=== PATIENT | female | born 1955 | race Caucasian/White ===

== ENCOUNTER 2018-03-12 22:40 | Inpatient (IN) | payer MEDICARE, MEDICAID ==
[~2018-03-12 22:40] MED LIST: ADV250 IH; BENZ1TAB70 PO; CARB200T6 PO; DOCU250C16 PO; LEVO150T11 PO; LISI-661 PO; RISP2 PO; SIMV-260 PO; VALP250S PO
[2018-03-13 01:50] VITALS: BP 122/88
[2018-03-13] MEDS ORDERED: PNEUMOCOCCAL VACCINE POLYVALENT 0.5 ML VIAL [PPSV23] IM ONE (03:45)
[2018-03-13 08:20] VITALS: BP 117/71
[2018-03-13] MEDS ORDERED: MAG HYDROX/AL HYDROX/SIMETH ES 30 ML SUSPENSION UDCUP PO PRN (13:00)
[2018-03-13] MEDS ORDERED: PROMETHAZINE HCL 25 MG TABLET PO PRN (13:00)
[2018-03-13] MEDS ORDERED: LOPERAMIDE HCL 2 MG CAPSULE PO PRN (13:00)
[2018-03-13] MEDS ORDERED: ACETAMINOPHEN 325 MG TABLET PO PRN (13:00)
[2018-03-13] MEDS ORDERED: GuaiFENesin/D-METHORPHAN [SUGAR-FREE] 200-20MG/10 ML SYRUP UDCUP PO PRN (13:00)
[2018-03-13] MEDS ORDERED: TUBERCULIN, PURIFIED PROTEIN DERIVATIVE 5 TU/0.1 ML SYG ID ONE (13:00)
[2018-03-13] MEDS ORDERED: HydrOXYzine PAMOATE 50 MG CAPSULE PO PRN (13:00)
[2018-03-13 16:14] VITALS: BP 114/77
[2018-03-13] MEDS: THIAMINE HCL 100 MG TABLET PO SCH (16:41)
[2018-03-13] MEDS: OLANZapine 5 MG RAPDIS TABLET PO SCH ×2 (21:00→21:35)
[2018-03-13] MEDS: DIVALPROEX SODIUM 500 MG ER TABLET PO SCH ×2 (21:00→21:34)
[2018-03-14 00:45] VITALS: BP 140/81
[2018-03-14] MEDS: LORazepam 2 MG TABLET PO PRN ×3 (03:23→16:17)
[2018-03-14] MEDS: HALOPERIDOL 5 MG TABLET PO PRN ×3 (03:24→16:17)
[2018-03-14] MEDS: OLANZapine 5 MG RAPDIS TABLET PO PRN (07:10)
[2018-03-14 08:42] LABS: BASOPHILS % (AUTO) 1.1 % (0.0-2.0); EOSINOPHILS % (AUTO) 0.9 % (1.0-6.0); HEMATOCRIT 44.8 % (36-46); HEMOGLOBIN 15.5 g/dL (12.0-16.0); LYMPHOCYTES # (AUTO) 2.4 K/uL (1.0-4.8); LYMPHOCYTES % (AUTO) 32.1 % (22.0-44.0); MEAN CORPUSCULAR HEMOGLOBIN 30.5 pg (26.0-34.0); MEAN CORPUSCULAR HGB CONC 34.6 G/dL (31.0-37.0); MEAN CORPUSCULAR VOLUME 88 fL (80-100); MONOCYTES # (AUTO) 0.6 K/uL (0.1-1.0); MONOCYTES % (AUTO) 7.7 % (2.0-9.0); NEUTROPHILS # (AUTO) 4.4 K/uL (1.8-7.7); NEUTROPHILS % (AUTO) 58.2 % (40.0-70.0); PLATELET COUNT (AUTO) 241 K/uL (150-450); RED BLOOD CELL COUNT(AUTO) 5.09 MIL/uL (4.00-5.20); RED CELL DISTRIBUTION WIDTH 13.6 % (11.5-14.5)
[2018-03-14] MEDS: THIAMINE HCL 100 MG TABLET PO SCH ×2 (08:57→16:19)
[2018-03-14] MEDS: MULTIVITAMINS WITH MINERALS, THERAPEUTIC TABLET PO SCH (08:57)
[2018-03-14] MEDS: FOLIC ACID 1 MG TABLET PO SCH (08:57)
[2018-03-14 09:00] LABS: HEMOGLOBIN A1C 5.3 % (4.5-6.2)
[2018-03-14 09:38] LABS: ALANINE AMINOTRANSFERASE 45 U/L (12-78); ALBUMIN 3.9 g/dL (3.4-5.0); ALKALINE PHOSPHATASE 79 U/L (46-116); ANION GAP 14 mmol/L (8-16); ASPARTATE AMINOTRANSFERASE 56 U/L (15-37); BILIRUBIN,TOTAL 1.1 mg/dL (0.1-1.0); CALCIUM, TOTAL 9.7 mg/dL (8.8-10.5); CARBON DIOXIDE 24 mmol/L (22-29); CHLORIDE 103 mmol/L (98-107); CHOL/HDL RATIO 3.9 (3.9-5.7); CHOLESTEROL 206 mg/dL (131-200); CREATININE 0.45 mg/dL (0.60-1.30); FREE T4 (FREE THYROXINE) 1.48 ng/dL (0.76-1.46); GLOMERULAR FILTR. RATE CALC > 60 mL/min (>60); GLUCOSE,RANDOM 135 mg/dL (70-110); HDL CHOLESTEROL 53 mg/dL (40-60); LDL CHOL (CALC.) 131 mg/dL (0-130); POTASSIUM 3.7 mmol/L (3.5-5.1); SODIUM SERUM 141 mmol/L (136-145); THYROID STIMULATING HORMONE 1.01 uIU/mL (0.36-3.74); TOTAL PROTEIN, SERUM 7.3 g/dL (6.4-8.2); TRIGLYCERIDES 109 mg/dL (15-150); UREA NITROGEN, BLOOD 11 mg/dL (7-18)
[2018-03-14] MEDS: NICOTINE 21 MG/24 HOUR PATCH TD SCH (11:50)
[2018-03-14 13:31] VITALS: BP 120/72
[2018-03-14 16:00] VITALS: BP 121/85
[2018-03-14] MEDS: OLANZapine 10 MG RAPDIS TABLET PO SCH (20:15)
[2018-03-14] MEDS: DIVALPROEX SODIUM 500 MG ER TABLET PO SCH (20:52)
[2018-03-15 06:43] VITALS: BP 138/79
[2018-03-15 08:42] VITALS: BP 128/98
[2018-03-15] MEDS: FOLIC ACID 1 MG TABLET PO SCH (09:00)
[2018-03-15] MEDS: THIAMINE HCL 100 MG TABLET PO SCH ×2 (09:08→17:07)
[2018-03-15] MEDS: NICOTINE 21 MG/24 HOUR PATCH TD SCH (09:08)
[2018-03-15] MEDS: MULTIVITAMINS WITH MINERALS, THERAPEUTIC TABLET PO SCH (09:09)
[2018-03-15 17:30] VITALS: BP 130/76
[2018-03-15] MEDS: OLANZapine 10 MG RAPDIS TABLET PO SCH (20:46)
[2018-03-15] MEDS: DIVALPROEX SODIUM 500 MG ER TABLET PO SCH (20:47)
[2018-03-16] MEDS: LORazepam 2 MG TABLET PO PRN ×2 (01:04→16:14)
[2018-03-16 03:51] VITALS: BP 128/94
[2018-03-16 08:06] VITALS: BP 127/87
[2018-03-16] MEDS: THIAMINE HCL 100 MG TABLET PO SCH ×2 (08:08→16:16)
[2018-03-16] MEDS: MULTIVITAMINS WITH MINERALS, THERAPEUTIC TABLET PO SCH (08:08)
[2018-03-16] MEDS: NICOTINE 21 MG/24 HOUR PATCH TD SCH (08:09)
[2018-03-16] MEDS: FOLIC ACID 1 MG TABLET PO SCH (08:09)
[2018-03-16 17:45] VITALS: BP 123/89
[2018-03-16] MEDS: OLANZapine 10 MG RAPDIS TABLET PO SCH (21:09)
[2018-03-17 04:36] VITALS: BP 118/83
[2018-03-17 08:11] VITALS: BP 129/91
[2018-03-17] MEDS: LORazepam 2 MG TABLET PO PRN ×2 (08:33→17:04)
[2018-03-17] MEDS: THIAMINE HCL 100 MG TABLET PO SCH ×2 (08:33→17:00)
[2018-03-17] MEDS: FOLIC ACID 1 MG TABLET PO SCH (08:33)
[2018-03-17] MEDS: MULTIVITAMINS WITH MINERALS, THERAPEUTIC TABLET PO SCH (08:33)
[2018-03-17] MEDS: NICOTINE 21 MG/24 HOUR PATCH TD SCH (08:39)
[2018-03-17] MEDS: OLANZapine 10 MG RAPDIS TABLET PO SCH (20:29)
[2018-03-18 06:07] VITALS: BP 136/82
[2018-03-18] MEDS: THIAMINE HCL 100 MG TABLET PO SCH ×2 (08:11→16:48)
[2018-03-18] MEDS: FOLIC ACID 1 MG TABLET PO SCH (08:11)
[2018-03-18] MEDS: MULTIVITAMINS WITH MINERALS, THERAPEUTIC TABLET PO SCH (08:11)
[2018-03-18] MEDS: OLANZapine 5 MG RAPDIS TABLET PO PRN ×2 (08:12→16:48)
[2018-03-18] MEDS: NICOTINE 21 MG/24 HOUR PATCH TD SCH (08:12)
[2018-03-18] MEDS: LORazepam 2 MG TABLET PO PRN ×2 (08:12→16:48)
[2018-03-18 10:02] VITALS: BP 124/74
[2018-03-18] MEDS: OLANZapine 10 MG RAPDIS TABLET PO SCH (20:48)
[2018-03-19 08:06] VITALS: BP 134/76
[2018-03-19] MEDS: THIAMINE HCL 100 MG TABLET PO SCH ×2 (08:16→16:57)
[2018-03-19] MEDS: NICOTINE 21 MG/24 HOUR PATCH TD SCH (08:17)
[2018-03-19] MEDS: LORazepam 2 MG TABLET PO PRN ×2 (08:17→16:58)
[2018-03-19] MEDS: MULTIVITAMINS WITH MINERALS, THERAPEUTIC TABLET PO SCH (08:17)
[2018-03-19] MEDS: FOLIC ACID 1 MG TABLET PO SCH (08:17)
[2018-03-19 16:33] VITALS: BP 139/89
[2018-03-19] MEDS: OLANZapine 5 MG RAPDIS TABLET PO PRN (16:58)
[2018-03-19] MEDS: MELATONIN 3 MG TABLET PO SCH (20:45)
[2018-03-19] MEDS: ZOLPIDEM TARTRATE 10 MG TABLET PO PRN (20:45)
[2018-03-20 06:05] VITALS: BP 145/80
[2018-03-20 08:12] LABS: EOSINOPHILS % (AUTO) 1.1 % (1.0-6.0); HEMATOCRIT 43.2 % (36-46); HEMOGLOBIN 14.7 g/dL (12.0-16.0); LYMPHOCYTES # (AUTO) 1.9 K/uL (1.0-4.8); LYMPHOCYTES % (AUTO) 34.6 % (22.0-44.0); MEAN CORPUSCULAR HEMOGLOBIN 30.4 pg (26.0-34.0); MEAN CORPUSCULAR HGB CONC 33.9 G/dL (31.0-37.0); MEAN CORPUSCULAR VOLUME 90 fL (80-100); MONOCYTES # (AUTO) 0.6 K/uL (0.1-1.0); MONOCYTES % (AUTO) 10.3 % (2.0-9.0); PLATELET COUNT (AUTO) 197 K/uL (150-450); RED BLOOD CELL COUNT(AUTO) 4.82 MIL/uL (4.00-5.20)
[2018-03-20] MEDS: THIAMINE HCL 100 MG TABLET PO SCH ×2 (08:17→16:34)
[2018-03-20] MEDS: MULTIVITAMINS WITH MINERALS, THERAPEUTIC TABLET PO SCH (08:17)
[2018-03-20] MEDS: FOLIC ACID 1 MG TABLET PO SCH (08:17)
[2018-03-20] MEDS: NICOTINE 21 MG/24 HOUR PATCH TD SCH (08:18)
[2018-03-20] MEDS: LORazepam 2 MG TABLET PO PRN ×2 (08:19→16:34)
[2018-03-20] MEDS ORDERED: CloZAPine 25 MG TABLET PO SCH (09:00)
[2018-03-20] MEDS: OLANZapine 5 MG RAPDIS TABLET PO PRN (16:34)
[2018-03-20 17:51] VITALS: BP 143/93
[2018-03-20] MEDS: MELATONIN 3 MG TABLET PO SCH (20:40)
[2018-03-20] MEDS: ZOLPIDEM TARTRATE 10 MG TABLET PO PRN (20:40)
[2018-03-21] VITALS: BP 140/92
[2018-03-21] MEDS: THIAMINE HCL 100 MG TABLET PO SCH ×2 (08:23→17:31)
[2018-03-21] MEDS: MULTIVITAMINS WITH MINERALS, THERAPEUTIC TABLET PO SCH (08:23)
[2018-03-21] MEDS: FOLIC ACID 1 MG TABLET PO SCH (08:23)
[2018-03-21] MEDS: NICOTINE 21 MG/24 HOUR PATCH TD SCH (08:27)
[2018-03-21] MEDS: LORazepam 2 MG TABLET PO PRN (08:33)
[2018-03-21] MEDS ORDERED: CloZAPine 25 MG TABLET PO SCH ×2 (09:00→21:00)
[2018-03-21 09:24] VITALS: BP 148/97
[2018-03-21 16:00] VITALS: BP 137/72
[2018-03-21] MEDS: MELATONIN 3 MG TABLET PO SCH (21:02)
[2018-03-22 01:15] VITALS: BP 138/88
[2018-03-22] MEDS: ZOLPIDEM TARTRATE 10 MG TABLET PO PRN (01:18)
[2018-03-22 08:35] VITALS: BP 136/98
[2018-03-22] MEDS ORDERED: CloZAPine 25 MG TABLET PO SCH ×2 (09:00→21:00)
[2018-03-22] MEDS: NICOTINE 21 MG/24 HOUR PATCH TD SCH (09:56)
[2018-03-22] MEDS: THIAMINE HCL 100 MG TABLET PO SCH ×2 (09:57→16:38)
[2018-03-22] MEDS: FOLIC ACID 1 MG TABLET PO SCH (09:57)
[2018-03-22] MEDS: MULTIVITAMINS WITH MINERALS, THERAPEUTIC TABLET PO SCH (09:57)
[2018-03-22] MEDS ORDERED: DIAZEPAM 5 MG TABLET PO PRN (15:45)
[2018-03-22 16:32] VITALS: BP 118/86
[2018-03-22] MEDS: MELATONIN 3 MG TABLET PO SCH (21:07)
[2018-03-23 07:36] VITALS: BP 116/88
[2018-03-23 08:00] VITALS: BP 165/109
[2018-03-23] MEDS: FOLIC ACID 1 MG TABLET PO SCH (08:13)
[2018-03-23] MEDS: CloZAPine 25 MG TABLET PO SCH ×2 (08:13→21:04)
[2018-03-23] MEDS: THIAMINE HCL 100 MG TABLET PO SCH (08:13)
[2018-03-23] MEDS: MULTIVITAMINS WITH MINERALS, THERAPEUTIC TABLET PO SCH (08:13)
[2018-03-23] MEDS: NICOTINE 21 MG/24 HOUR PATCH TD SCH (08:13)
[2018-03-23] MEDS ORDERED: DiphenhydrAMINE HCL 25 MG CAPSULE PO ONE (16:15)
[2018-03-23] MEDS: LORazepam 2 MG TABLET PO PRN (16:59)
[2018-03-23] MEDS: OLANZapine 5 MG RAPDIS TABLET PO PRN (17:00)
[2018-03-23] MEDS: MELATONIN 3 MG TABLET PO SCH (21:05)
[2018-03-24] MEDS: NICOTINE 21 MG/24 HOUR PATCH TD SCH (09:58)
[2018-03-24] MEDS: CloZAPine 25 MG TABLET PO SCH ×2 (09:58→20:34)
[2018-03-24] MEDS: MULTIVITAMINS WITH MINERALS, THERAPEUTIC TABLET PO SCH (09:58)
[2018-03-24] MEDS: DiphenhydrAMINE HCL 25 MG CAPSULE PO SCH (10:00)
[2018-03-24 11:10] VITALS: BP 132/93
[2018-03-24 16:00] VITALS: BP 146/90
[2018-03-24] MEDS: MELATONIN 3 MG TABLET PO SCH (20:34)
[2018-03-25 01:48] VITALS: BP 144/88
[2018-03-25] MEDS ORDERED: CloZAPine 25 MG TABLET PO SCH (09:00)
[2018-03-25] MEDS: DiphenhydrAMINE HCL 25 MG CAPSULE PO SCH (09:35)
[2018-03-25] MEDS: NICOTINE 21 MG/24 HOUR PATCH TD SCH (09:35)
[2018-03-25] MEDS: MULTIVITAMINS WITH MINERALS, THERAPEUTIC TABLET PO SCH (09:35)
[2018-03-25] MEDS: MELATONIN 3 MG TABLET PO SCH (20:27)
[2018-03-25] MEDS ORDERED: CloZAPine 100 MG TABLET PO SCH (21:00)
[2018-03-26] MEDS ORDERED: CloZAPine 25 MG TABLET PO SCH (09:00)
[2018-03-26] MEDS: NICOTINE 21 MG/24 HOUR PATCH TD SCH (09:05)
[2018-03-26] MEDS: MULTIVITAMINS WITH MINERALS, THERAPEUTIC TABLET PO SCH (09:06)
[2018-03-26] MEDS: DiphenhydrAMINE HCL 25 MG CAPSULE PO SCH (09:06)
[2018-03-26 16:00] VITALS: BP 127/86
[2018-03-26] MEDS: MELATONIN 3 MG TABLET PO SCH (20:27)
[2018-03-26] MEDS ORDERED: CloZAPine 100 MG TABLET PO SCH (21:00)
[2018-03-27] MEDS: NICOTINE 21 MG/24 HOUR PATCH TD SCH (08:20)
[2018-03-27] MEDS: LORazepam 2 MG TABLET PO PRN (08:20)
[2018-03-27] MEDS: MULTIVITAMINS WITH MINERALS, THERAPEUTIC TABLET PO SCH (08:20)
[2018-03-27] MEDS ORDERED: CloZAPine 25 MG TABLET PO SCH (09:00)
[2018-03-27] MEDS: MELATONIN 3 MG TABLET PO SCH (20:32)
[2018-03-27] MEDS ORDERED: CloZAPine 100 MG TABLET PO SCH (21:00)
[2018-03-28] MEDS: NICOTINE 21 MG/24 HOUR PATCH TD SCH (08:44)
[2018-03-28] MEDS: MULTIVITAMINS WITH MINERALS, THERAPEUTIC TABLET PO SCH (08:44)
[2018-03-28] MEDS: CloZAPine 100 MG TABLET PO SCH ×2 (08:44→20:16)
[2018-03-28] MEDS: MELATONIN 3 MG TABLET PO SCH (20:15)
[2018-03-29 08:05] VITALS: BP 122/60
[2018-03-29] MEDS: MULTIVITAMINS WITH MINERALS, THERAPEUTIC TABLET PO SCH (08:37)
[2018-03-29] MEDS: NICOTINE 21 MG/24 HOUR PATCH TD SCH (08:37)
[2018-03-29] MEDS: MAGNESIUM HYDROXIDE SUSPENSION 30 ML UDCUP PO PRN (08:44)
[2018-03-29] MEDS: CloZAPine 100 MG TABLET PO SCH ×2 (08:47→20:19)
[2018-03-29 08:48] LABS: BASOPHILS % (AUTO) 0.7 % (0.0-2.0); EOSINOPHILS % (AUTO) 1.4 % (1.0-6.0); HEMATOCRIT 43.4 % (36-46); HEMOGLOBIN 14.7 g/dL (12.0-16.0); LYMPHOCYTES # (AUTO) 2.3 K/uL (1.0-4.8); LYMPHOCYTES % (AUTO) 30.2 % (22.0-44.0); MEAN CORPUSCULAR HEMOGLOBIN 30.1 pg (26.0-34.0); MEAN CORPUSCULAR HGB CONC 33.8 G/dL (31.0-37.0); MEAN CORPUSCULAR VOLUME 89 fL (80-100); MONOCYTES # (AUTO) 0.6 K/uL (0.1-1.0); MONOCYTES % (AUTO) 7.4 % (2.0-9.0); NEUTROPHILS # (AUTO) 4.6 K/uL (1.8-7.7); NEUTROPHILS % (AUTO) 60.3 % (40.0-70.0); PLATELET COUNT (AUTO) 217 K/uL (150-450); RED BLOOD CELL COUNT(AUTO) 4.87 MIL/uL (4.00-5.20); RED CELL DISTRIBUTION WIDTH 13.6 % (11.5-14.5)
[2018-03-29] MEDS: SIMVASTATIN 10 MG TABLET PO SCH (20:19)
[2018-03-29] MEDS: MELATONIN 3 MG TABLET PO SCH (20:26)
[2018-03-30] MEDS: LEVOTHYROXINE SODIUM 75 MCG TABLET PO SCH (06:04)
[2018-03-30 06:38] VITALS: BP 103/62
[2018-03-30 08:14] VITALS: BP 105/68
[2018-03-30] MEDS: MULTIVITAMINS WITH MINERALS, THERAPEUTIC TABLET PO SCH (08:24)
[2018-03-30] MEDS: LISINOPRIL 10 MG TABLET PO SCH (08:24)
[2018-03-30] MEDS: FLUTICASONE/VILANTEROL 100-25 MCG/INH INHALER [14] IH SCH (08:26)
[2018-03-30] MEDS: NICOTINE 21 MG/24 HOUR PATCH TD SCH (08:35)
[2018-03-30] MEDS ORDERED: CloZAPine 25 MG TABLET PO SCH ×2 (09:00)
[2018-03-30 16:20] VITALS: BP 119/86
[2018-03-30] MEDS: SIMVASTATIN 10 MG TABLET PO SCH (20:40)
[2018-03-30] MEDS: MELATONIN 3 MG TABLET PO SCH (20:41)
[2018-03-30] MEDS ORDERED: CloZAPine 100 MG TABLET PO SCH (21:00)
[2018-03-31 05:46] VITALS: BP 109/60
[2018-03-31] MEDS: LEVOTHYROXINE SODIUM 75 MCG TABLET PO SCH (06:02)
[2018-03-31 08:04] VITALS: BP 136/79
[2018-03-31] MEDS: NICOTINE 21 MG/24 HOUR PATCH TD SCH (08:21)
[2018-03-31] MEDS: LISINOPRIL 10 MG TABLET PO SCH (08:22)
[2018-03-31] MEDS: MULTIVITAMINS WITH MINERALS, THERAPEUTIC TABLET PO SCH (08:22)
[2018-03-31] MEDS: FLUTICASONE/VILANTEROL 100-25 MCG/INH INHALER [14] IH SCH (08:29)
[2018-03-31] MEDS ORDERED: CloZAPine 25 MG TABLET PO SCH ×3 (09:00→21:00)
[2018-03-31 16:04] VITALS: BP 108/66
[2018-03-31] MEDS: MAGNESIUM HYDROXIDE SUSPENSION 30 ML UDCUP PO PRN (18:02)
[2018-03-31] MEDS: SIMVASTATIN 10 MG TABLET PO SCH (20:21)
[2018-03-31] MEDS: MELATONIN 3 MG TABLET PO SCH (20:21)
[2018-03-31] MEDS ORDERED: CloZAPine 100 MG TABLET PO SCH (21:00)
[2018-04-01] MEDS: LEVOTHYROXINE SODIUM 75 MCG TABLET PO SCH (06:44)
[2018-04-01] MEDS: FLUTICASONE/VILANTEROL 100-25 MCG/INH INHALER [14] IH SCH (08:35)
[2018-04-01] MEDS: MULTIVITAMINS WITH MINERALS, THERAPEUTIC TABLET PO SCH (08:35)
[2018-04-01] MEDS: CloZAPine 100 MG TABLET PO SCH ×2 (08:35→20:12)
[2018-04-01] MEDS: LISINOPRIL 10 MG TABLET PO SCH (08:36)
[2018-04-01] MEDS: NICOTINE 21 MG/24 HOUR PATCH TD SCH (08:37)
[2018-04-01] MEDS ORDERED: CloZAPine 25 MG TABLET PO SCH ×2 (09:00→21:00)
[2018-04-01 17:34] VITALS: BP 115/66
[2018-04-01] MEDS: SIMVASTATIN 10 MG TABLET PO SCH (20:13)
[2018-04-01] MEDS: MELATONIN 3 MG TABLET PO SCH (20:13)
[2018-04-02] MEDS: LEVOTHYROXINE SODIUM 75 MCG TABLET PO SCH (06:26)
[2018-04-02 06:45] VITALS: BP 121/75
[2018-04-02] MEDS ORDERED: CloZAPine 25 MG TABLET PO SCH (09:00)
[2018-04-02] MEDS: FLUTICASONE/VILANTEROL 100-25 MCG/INH INHALER [14] IH SCH (09:04)
[2018-04-02] MEDS: CloZAPine 100 MG TABLET PO SCH ×2 (09:05→20:27)
[2018-04-02] MEDS: MULTIVITAMINS WITH MINERALS, THERAPEUTIC TABLET PO SCH (09:05)
[2018-04-02] MEDS: LISINOPRIL 10 MG TABLET PO SCH (09:06)
[2018-04-02] MEDS: NICOTINE 21 MG/24 HOUR PATCH TD SCH (09:06)
[2018-04-02] MEDS ORDERED: CLOZ100 PO (11:33)
[2018-04-02] MEDS ORDERED: MELA3TAB66 PO (11:33)
[2018-04-02 16:40] VITALS: BP 113/69
[2018-04-02] MEDS ORDERED: SIMV-259 PO (17:00)
[2018-04-02] MEDS ORDERED: LISI-660 PO (17:01)
[2018-04-02] MEDS ORDERED: FLUT1AER IH (17:01)
[2018-04-02] MEDS ORDERED: LEVO50TA11 PO (17:01)
[2018-04-02] MEDS: MELATONIN 3 MG TABLET PO SCH (20:27)
[2018-04-02] MEDS: SIMVASTATIN 10 MG TABLET PO SCH (20:27)
[2018-04-02] MEDS: LORazepam 2 MG TABLET PO PRN (20:27)
[2018-04-03 06:28] VITALS: BP 110/62
[2018-04-03] MEDS: LEVOTHYROXINE SODIUM 75 MCG TABLET PO SCH (06:33)
[2018-04-03 08:23] LABS: BASOPHILS % (AUTO) 0.4 % (0.0-2.0); EOSINOPHILS % (AUTO) 1.4 % (1.0-6.0); HEMATOCRIT 39.8 % (36-46); HEMOGLOBIN 13.4 g/dL (12.0-16.0); LYMPHOCYTES # (AUTO) 1.6 K/uL (1.0-4.8); LYMPHOCYTES % (AUTO) 13.7 % (22.0-44.0); MEAN CORPUSCULAR HEMOGLOBIN 29.7 pg (26.0-34.0); MEAN CORPUSCULAR HGB CONC 33.7 G/dL (31.0-37.0); MEAN CORPUSCULAR VOLUME 88 fL (80-100); MONOCYTES # (AUTO) 0.7 K/uL (0.1-1.0); MONOCYTES % (AUTO) 6.6 % (2.0-9.0); NEUTROPHILS # (AUTO) 8.8 K/uL (1.8-7.7); NEUTROPHILS % (AUTO) 77.9 % (40.0-70.0); PLATELET COUNT (AUTO) 249 K/uL (150-450); RED BLOOD CELL COUNT(AUTO) 4.52 MIL/uL (4.00-5.20)
[2018-04-03 08:44] VITALS: BP 112/60
[2018-04-03] MEDS: MULTIVITAMINS WITH MINERALS, THERAPEUTIC TABLET PO SCH (09:25)
[2018-04-03] MEDS: NICOTINE 21 MG/24 HOUR PATCH TD SCH (09:26)
[2018-04-03] MEDS: CloZAPine 100 MG TABLET PO SCH (09:26)
[2018-04-03] MEDS: LISINOPRIL 10 MG TABLET PO SCH (09:26)
[2018-04-03] MEDS: FLUTICASONE/VILANTEROL 100-25 MCG/INH INHALER [14] IH SCH (09:30)
[2018-04-04] MEDS ORDERED: CloZAPine 25 MG TABLET PO SCH (09:00)
[2018-04-04] MEDS ORDERED: CloZAPine 100 MG TABLET PO SCH (21:00)
[2018-04-05] MEDS ORDERED: CloZAPine 25 MG TABLET PO SCH (09:00)
[2018-04-05] MEDS ORDERED: CloZAPine 100 MG TABLET PO SCH (21:00)
[2018-04-06] MEDS ORDERED: CloZAPine 25 MG TABLET PO SCH (09:00)
[2018-04-06] MEDS ORDERED: CloZAPine 100 MG TABLET PO SCH (21:00)
[2018-04-07] MEDS ORDERED: CloZAPine 100 MG TABLET PO SCH (09:00)
== END 2018-04-03 09:52 | disposition home or self-care (01) | DRG 885 ==
LOC: B3A 03-13 01:30
PROVIDERS: ADMIT Psychiatry & Neurology Psychiatry; ATTEND Psychiatry & Neurology Psychiatry
DX: F20.0 Paranoid schizophrenia (principal); F17.200 Nicotine dependence, unspecified, uncomplicated; K59.00 Constipation, unspecified; J44.9 Chronic obstructive pulmonary disease, unspecified; E78.5 Hyperlipidemia, unspecified; E03.9 Hypothyroidism, unspecified; M19.90 Unspecified osteoarthritis, unspecified site; K21.9 Gastro-esophageal reflux disease without esophagitis; E66.3 Overweight; I10 Essential (primary) hypertension; G47.00 Insomnia, unspecified; Z68.34 Body mass index [BMI] 34.0-34.9, adult; Z91.19 Patient's noncompliance with other medical treatment and regimen
CPT/HCPCS: 80159; 83036; 84439; 84443; 87081